=== PATIENT | female | born 1960 | race Caucasian/White ===

== ENCOUNTER → 2019-05-26 | Day surgery (SDC) | payer OTHER ==
--- NOTE | 2019-05-25 13:25 | Pre Op History & Physical ---
CHIEF COMPLAINT: Lesion in the left corner of the eye on the medial area. HISTORY OF PRESENT ILLNESS: This 58-year-old female was noted to have a lesion in the left medial corner of the upper eyelid for number of years. The lesion has been increasing in size and irritating to the patient. The patient has history of sun exposure. REVIEW OF SYSTEMS: System review showed no recent cardiovascular, respiratory, or GI problem. PAST MEDICAL HISTORY: The patient has a history of hypertension. PAST SURGICAL HISTORY: She has a previous right knee surgery, breast biopsy, tonsillectomy, and hysterectomy. ALLERGIES: SHE IS ALLERGIC TO CODEINE AND ASPIRIN. MEDICATIONS: She is on Dexilant, chlordiazepoxide. SOCIAL HISTORY: She smokes a few cigarettes per day and is a nondrinker. FAMILY HISTORY: Noncontributory. PHYSICAL EXAMINATION: VITAL SIGNS: The patient's vital signs were within normal limits. HEENT: Ear exam showed normal tympanic membrane bilaterally. Musculoskeletal exam showed the patient has a papillary lesion about 0.5 cm in the medial corner of the upper eyelid. Nasal exam showed no obvious abnormality. Oropharynx and oral cavity showed no tonsils with Mallampati level 3. NECK: Showed no lymph nodes or no thyroid palpable. CHEST: Showed good air entry bilaterally. CARDIOVASCULAR: Showed S1 and S2. No murmur noted. ASSESSMENT AND PLAN: Ms. Pisano has a lesion on the corner of the eye, which is increasing in size and irritating to the patient. Suggested treatment is excision of lesion with appropriate closure and other necessary procedure. The complication of procedure includes, but not limited to bleeding, infection, poor cosmetic result, lid lag, wound breakdown, trouble with hearing, corneal abrasion, persistent recurrence of the problem. The alternative will be continue observation excision of lesion in the office setting. The patient has elected to undergo surgical procedure. MD ASYA Daniel/RAMEZ /[id number] cc: Dr. Penelope Belcher
[~2019-05-26] MED LIST: BALANCED SALT SOLN (OPTH) 15 ML BTL IO ONE; CHLORDIAZEPOXI1 EACH PO; CHLORDIAZEPOXID10 MG PO; DEXAMETHASONE SOD PHOS INJ 4 MG/ML VIAL ONE; DEXILANT60 MG PO; FENTANYL CITRATE/PF 100MCG/2 ML INJ ONE; LIDOCAINE 1% W/EPINEPHRINE 20 ML VIAL ONE; LIDOCAINE HCL 2% LOCAL INJ 5 ML SDV VIAL INJ ONE; LOSARTAN POTAS100 MG PO; MIDAZOLAM HCL 2 MG/2 ML VIAL ONE; ONDANSETRON HCL INJ 2MG/ML 2ML 2 MG/ML VIAL ONE; PROPOFOL IV EMULSION 10 MG/ML 20 ML VIAL ONE; SEVOFLURANE INHAL SOLN 250 ML PEN BTL ONE
--- OUTSIDE RECORDS SUMMARY | 2019-05-26 06:42 | XMS REPORT | Summary of Care ---
Author Author [facility] [place] Organization [facility] [place] Address Unknown Phone Unavailable Encounter HQ Encntr_alias(FIN) [id number] Date(s): 08/03/16 - 08/03/16 [facility] [place] [address] [place] [phone] Discharge Disposition: Home or Self Care Attending Physician: Konstantin Belcher MD Vital Signs No data available for this section Problem List No data available for this section Allergies, Adverse Reactions, Alerts No data available for this section Medications No data available for this section Results No data available for this section Immunizations No data available for this section Procedures No data available for this section Social History No data available for this section Assessment and Plan No data available for this section
--- OUTSIDE RECORDS SUMMARY | 2019-05-26 06:42 | XMS REPORT | Clinical Summary ---
Author Author [facility] Address Unknown Phone Unavailable Care Team Providers Care Door Closer Mechanic Name Role Phone Belcher Konstantin Tariq PCP Allergies Comments Active Allergy Reactions Severity Noted Date Aspirin Swelling 01/17/2018 Codeine 01/17/2018 Medications End Date Status Medication Sig Dispensed Refills Start Date Active amitriptyline-chlordiazep Take 1 tablet 0 oxide (LIMBITROL) 25-10 by mouth 2 mg tablet (two) times a day. Active losartan (COZAAR) 50 MG TK 1 T PO QD 3 tablet 9 Active chlordiazePOXIDE Take 10 mg by 0 (LIBRIUM) 10 MG capsule mouth 3 (three) times a day as needed for anxiety. Active dexlansoprazole Take 60 mg by 0 (DEXILANT) 60 mg capsule mouth daily. Active Problems Not on file Encounters Care Team Description Date Type Specialty Joao Villanueva MD Epistaxis (Primary Dx) 03/29/2019 Emergency Emergency Medicine after 05/25/2018 Social History Date Tobacco Use Types Packs/Day Years Used Heavy Tobacco Smoker 1 Smokeless Tobacco: Never Used Alcohol Use Drinks/Week oz/Week Comments No Sex Assigned at Date Recorded Not on file Industry Job Start Date Occupation Not on file Not on file Not on file Travel End Travel History Travel Start No recent travel history available. 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 For more information, kalee cuba contact: Misbah Manzo [address] [place] [address]
--- OUTSIDE RECORDS SUMMARY | 2019-05-26 06:42 | XMS REPORT | Continuity of Care Document ---
Author Author [employer] Organization [employer] Address Unknown Phone Unavailable Care Team Providers Care Shook Machine Operator Name Role Phone anywayanyday Information [employer] Unavailable Unavailable Problems Problem Status Onset Date Classification Date Reported Comments Source Encounter for screening mammogram for malignant neoplasm of breast 09/23/2018 04/05/2019 [facility] Z12.31 - ENCNTR SCREEN MAMMOGRAM FOR MA Active 07/02/2016 [facility] [place] Age-related osteoporosis without current pathological fracture 04/05/2019 [facility] [place] Other specified disorders of bone density and structure, unspecified site 04/05/2019 [facility] [place] Medications No Data Provided for This Section Allergies, Adverse Reactions, Alerts No Known Medication Allergies Immunizations No Data Provided for This Section Results No Data Provided for This Section Pathology Reports No Data Provided for This Section Diagnostic Reports Report Value Date Source Breast Mammo Scrn MALACHI incl CAD MA BILATERAL DIGITAL SCREENING MAMMOGRAM WITH CAD: 09/16/2018 CLINICAL: Z12.31 Encounter For Screening Mammogram For Malignant Neoplasm Of Breast/Z12.31 Encounter For Screening Mammogram For Malignant Neoplasm Of Breast. Current study was evaluated with a Computer Aided Detection (CAD) system. COMPARISON:Comparison is made to exams dated: 08/03/2016 mammogram - [facility], 08/15/2011 mammogram - [facility], and 04/27/2010 mammogram - [facility]. TECHNIQUE: Mammographic views were obtained using digital acquisition. Current study was also evaluated with a Computer Aided Detection (CAD) system. FINDINGS: There are scattered fibroglandular densities in both breasts. There are stable bilateral asymmetries, accounting for differences in positioning and technique. There is a benign appearing mass in the left breast. There also are benign appearing calcifications in both breasts. No significant masses, calcifications, or other findings are seen in either breast. There has been no significant interval change. IMPRESSION: BENIGN RECOMMENDATION:There is no mammographic evidence of malignancy. A 1 year screening mammogram is recommended.(09/17/2019) Professional services are provided by the [facility]. Shailesh Patton M.D., jp/carey:09/17/2018 07:55:46 It Trainer(s): RT Tomer(R)(M), [facility] letter sent: BI-RADS 1/2 Mammogram BI-RADS: 2 Benign 09/16/2018 [facility] Bone Density [employer] MA BONE DENSITY ASSESSMENT: 09/16/2018 CLINICAL DATA: Post menopausal. M81.0 Age related osteoporosis. M81.0 Age- Related Osteoporosis Without Current Pathological Fracture/M81.0 Age-Related Osteoporosis Without Current Pathological Fracture RISK FACTORS: race. COMPARISON: 08/03/2016 Left hip using a Hologic unit from [facility] with reported medium fracture risk, BMD of 0.734g/cm2, T-score of -1.70, and Z-score of - 1.00. 08/03/2016 Right hip using a Hologic unit from [facility] with reported medium fracture risk, BMD of 0.758g/cm2, T-score of -1.50, and Z-score of - 0.80. 08/03/2016 AP L1-L4 region of spine using a Hologic unit from [facility] with reported medium fracture risk, BMD of 0.849g/cm2, T-score of - 1.80, and Z-score of -0.70. FINDINGS: Bone density evaluation was performed 09/16/2018 on the right femur neck using a Hologic unit. The BMD average for the exam is 0.627 g/cm2. The T-score is -2.00 and the Z-score is -0.80. This matches the World Health Organization's criteria for osteopenia and places the patient at a medium risk for fracture. An additional bone density evaluation was performed 09/16/2018 on the left femur neck using a Hologic unit. The BMD average for the exam is 0.632 g/cm2. The T- score is -2.00 and the Z-score is -0.80. This matches the World Health Organization's criteria for osteopenia and places the patient at a medium risk for fracture. An additional bone density evaluation was performed 09/16/2018 on the right hip using a Hologic unit. The BMD average for the exam is 0.754 g/cm2. The T-score is -1.50 and the Z-score is -0.70. Since the previous similar exam of 08/03/2016, there has been a -0.004 or -0.5% change in the BMD value which represents no significant interval change in bone density. This matches the World Health Organization's criteria for osteopenia and places the patient at a medium risk for fracture. An additional bone density evaluation was performed 09/16/2018 on the left hip using a Hologic unit. The BMD average for the exam is 0.736 g/cm2. The T-score is -1.70 and the Z-score is -0.90. Since the previous similar exam of 08/03/2016, there has been a +0.002 or +0.3% change in the BMD value which represents no significant interval change in bone density. This matches the World Health Organization's criteria for osteopenia and places the patient at a medium risk for fracture. An additional bone density evaluation was performed 09/16/2018 on the AP L1-L4 region of spine using a Hologic unit. The BMD average for the exam is 0.867 g/cm2. The T-score is -1.60 and the Z-score is -0.40. Since the previous similar exam of 08/03/2016, there has been a +0.018 or +2.1% change in the BMD value which represents no significant interval change in bone density. This matches the World Health Organization's criteria for osteopenia and places the patient at a medium risk for fracture. FRAX 10 year probability of major osteoporotic fracture is 8.6% and hip fracture is 1%. IMPRESSION: OSTEOPENIA Patient is at medium risk for fracture. This exam was interpreted at [id number] at [facility]. Jean Pierre Bullard M.D., cm/carey:09/16/2018 15:27:52 It Trainer(s): Cynthia HERNANDEZ(R)(M), [facility] 09/16/2018 [facility] Pelvis Transvaginal US EXAM: Pelvis Transvaginal US HISTORY: R10.2 Pelvic and perineal pain COMPARISON: 01/05/2009 Technique: Transabdominal and Transvaginal Vanegas scale and color doppler with limited spectral doppler imaging of the uterus and ovaries. Findings: Neither ovary is visualized. The uterus is surgically absent. No adnexal mass is seen. There is no free fluid. The bladder is distended and grossly unremarkable. IMPRESSION: No pelvic mass is seen. Neither ovary is visualized. 08/14/2016 [facility] Bone Density D[employer] MA - Bone Density D[employer] MA BONE DENSITY EVALUATION: 08/03/2016 CLINICAL DATA: Post menopausal and clinical risk for osteoporosis. RISK FACTORS: race, maternal history of osteoporosis and cigarette smoking. FINDINGS: Bone density evaluation was performed 08/03/2016 on the AP L1-L4 region of spine using a Hologic unit. The BMD average for the exam is 0.849 g/cm2. The T-score is -1.80 and the Z-score is -0.70. This matches the World Health Organization's criteria for osteopenia and places the patient at a medium risk for fracture. An additional bone density evaluation was performed 08/03/2016 on the right femur neck using a Hologic unit. The BMD average for the exam is 0.645 g/cm2. The T-score is -1.80 and the Z-score is -0.70. This matches the World Health Organization's criteria for osteopenia and places the patient at a medium risk for fracture. An additional bone density evaluation was performed 08/03/2016 on the right hip using a Hologic unit. The BMD average for the exam is 0.758 g/cm2. The T-score is -1.50 and the Z-score is -0.80. This matches the World Health Organization's criteria for osteopenia and places the patient at a medium risk for fracture. An additional bone density evaluation was performed 08/03/2016 on the left femur neck using a Hologic unit. The BMD average for the exam is 0.593 g/cm2. The T- score is -2.30 and the Z-score is -1.20. This matches the World Health Organization's criteria for osteopenia and places the patient at a medium risk for fracture. An additional bone density evaluation was performed 08/03/2016 on the left hip using a Hologic unit. The BMD average for the exam is 0.734 g/cm2. The T-score is -1.70 and the Z-score is -1.00. This matches the World Health Organization's criteria for osteopenia and places the patient at a medium risk for fracture. IMPRESSION: OSTEOPENIA Patient is at medium risk for fracture. This exam was dictated and interpreted by [id number] for [facility]. Lizette Moody M.D. ms/penrad:08/08/2016 09:38:24 It Trainer: Enid HERNANDEZ(R)(M), [facility] 08/03/2016 [facility] Chest 2 views DX EXAM: 2 view(s) of the chest. INDICATION: Nicotine dependence. COMPARISON: Chest x-ray: None. FINDINGS: Support apparatus: None. Cardiac silhouette: Unremarkable. Kaleigh: Unremarkable. Lobar consolidation: Negative. Pleural effusion: Negative. Pneumothorax: Negative. Other: Negative. Bones: Unremarkable. Other: Bilateral metallic nipple markers. IMPRESSION: 1. No acute cardiopulmonary process. 08/03/2016 [facility] Digital Mammo Screening Malachi MA - DIGITAL MAMMO SCREENING MALACHI MA BILATERAL DIGITAL SCREENING MAMMOGRAM WITH CAD: 08/03/2016 CLINICAL: Z12.31 Encounter For Screening Mammogram For Malignant Neoplasm Of Breast. Current study was evaluated with a Computer Aided Detection (CAD) system. Comparison is made to exams dated: 08/15/2011 mammogram - [facility], 04/27/2010 mammogram and 03/22/2010 mammogram - [facility]. There are scattered fibroglandular densities in both breasts. There are benign appearing calcifications in both breasts. There also are benign appearing densities in the left breast. Additionally there are post operative findings in both breasts. No significant masses, calcifications, or other findings are seen in either breast. IMPRESSION: BENIGN There is no mammographic evidence of malignancy. A 1 year screening mammogram is recommended. At the time of this study, the patient reported a history of breast pain; if this pain is focal and constant, ultrasound may be considered for further evaluation as clinically directed. Consider genetic counseling in this patient with a family history of breast cancer in maternal and paternal aunts, as well as a family history of ovarian cancer in an aunt. Alina Garcia M.D. rn/:08/06/2016 09:53:11 It Trainer: Cynthia Cruz RT(R)(M), [facility] This exam was dictated and interpreted by [id number] for BAUDILIO Gutierrez. letter sent: Bilateral Benign Mammogram BI-RADS: 2 Benign 08/03/2016 [facility] [place] Consultation Notes No Data Provided for This Section Discharge Summaries No Data Provided for This Section History and Physicals No Data Provided for This Section Vital Signs No Data Provided for This Section Encounters Location Location Details Encounter Type Encounter Number Reason For Visit Attending Provider ADM Date DC Date Status Source [facility] [place] Out[facility] [id number] Konstantin Belcher 08/03/2016 08/04/2016 [facility] [place] [facility] [place] [facility] [id number] Konstantin Belcher 08/14/2016 08/15/2016 [facility] [place] [facility] [place] Out[facility] [id number] Konstantin Belcher 09/16/2018 09/17/2018 [facility] [place] Procedures No Data Provided for This Section Assessment and Plan No Data Provided for This Section Plan of Care No Data Provided for This Section Social History Social History Date Source No data available for this section 09/17/2018 [facility] [place] Family History No Data Provided for This Section Advance Directives No Data Provided for This Section Functional Status No Data Provided for This Section
--- OUTSIDE RECORDS SUMMARY | 2019-05-26 06:42 | XMS REPORT | Summary of Care ---
Author Author [facility] [place] Organization [facility] [place] Address Unknown Phone Unavailable Encounter HQ Lito_morena(FIN) [id number] Date(s): 09/16/18 - 09/16/18 [facility] [place] [address] [place] [phone] Encounter Diagnosis Encounter for screening mammogram for malignant neoplasm of breast (Final) - 09/22/18 Age-related osteoporosis without current pathological fracture (Final) - Other specified disorders of bone density and structure, unspecified site (Final) - Discharge Disposition: Home or Self Care Attending Physician: Konstantin Belcher MD Referring Physician: Konstantin Belcher MD Vital Signs No [...]
--- OUTSIDE RECORDS SUMMARY | 2019-05-26 06:42 | XMS REPORT | Summary of Care ---
Author Author [facility] [place] Organization [facility] [place] Address Unknown Phone Unavailable Encounter HQ Encntr_alias(FIN) [id number] Date(s): 08/14/16 - 08/14/16 [facility] [place] [address] [place] [phone] Discharge Disposition: Home or Self Care Attending [...]
--- NOTE | 2019-05-26 07:20 | NUR ---
SPIRITUAL CARE - Pre-Surgery Assessment: Pt in bed. Pt's at bedside. Pt reported supportive attention from family and friends. Intervention: I provided pastoral presence, hospitality, sympathetic listening, and prayer. I acquainted pt with availability of jet mechanic while hospitalized. Outcome: Pt expressed appreciation for visit. No need for follow up indicated at this time. SIERRA COREY Performance Analyst Spiritual Care Department O: [phone] Pager: [phone] ([phone] number calling from)
[2019-05-26 11:15] VITALS: BP 131/84
--- NOTE | 2019-05-28 10:40 | Operative Report ---
DATE OF PROCEDURE: 05/26/2019 SURGEON: Sebastian Morton MD CHIEF COMPLAINT: Lesion on left medial eyelid and lateral side of the nose on the left side. POSTOPERATIVE DIAGNOSIS: Lesion on left medial eyelid and lateral side of the nose on the left side. OPERATIVE PROCEDURE: Excision of left upper eyelid and lateral nose lesion 2 x 1 cm with skin graft closure. ANESTHESIA: Anesthesiology group. INDICATIONS: This 58-year-old female was noted to have a lesion in the lateral side of the nose over the past year. The lesion has been increasing in size. The patient has been treated with ointment with no improvement. It was that decided excision of lesion with appropriate closure and other necessary procedure will be beneficial for her. DESCRIPTION OF PROCEDURE: The patient was taken to the operating room, put under general anesthesia, LMA airway created. The lesion was excised. The location of lesion was at the lateral upper nose. Size of the defect was about 2 x 1 cm. This was sent for frozen section. At the time of procedure, the frozen section was not available because the pathologist was not available. The specimen was subsequently sent to permanent section. Because of the lack of frozen section, a margin of about 0.5 cm around the lesion was taken. Closure of the area was undertaken. Closure of this area was difficult because of the lack of excess tissue around that area. It was decided that a skin graft will be a more beneficial closure technique, especially the fact that no definitive confirmation of the margins being clear. Skin graft was taken from the upper eyelid on the left side. The harvesting of the skin graft was undertaken. The skin graft was taken from the upper lid blepharoplasty. This was done with marking of the upper lid, the inferior portion of the incision was about 1 cm from the edge of the lashes and the excess skin of the upper eyelid was determined to make sure that no lid lag or trouble closure of the lid would be undertaken. This was taken off with skin only. The harvested skin was put on the side. The incision of the upper lid was closed with 6-0 Prolene suture in an interrupted fashion. The skin graft that was harvested was put on the excision defect and trimmed to size. This was also sutured in place as a full-thickness skin graft to the defect and sutured in place using 6-0 Prolene suture in the interrupted fashion. Hemostasis in both the donor and the excision site was controlled using the bipolar cautery. The patient tolerated the above procedure well with minimal blood loss. She was given 20 mg of Decadron intraoperatively. The patient was able to be transferred to recovery room in stable condition. MD ASYA Daniel/RAMEZ /[id number]
== END | disposition home or self-care (01) ==
LOC: OR 06:38
PROVIDERS: ATTEND Otolaryngology Otolaryngology/Facial Plastic Surgery
DX: C44.1191 Basal cell carcinoma of skin of left upper eyelid, including canthus (principal); J34.89 Other specified disorders of nose and nasal sinuses; J45.909 Unspecified asthma, uncomplicated; I10 Essential (primary) hypertension; K21.9 Gastro-esophageal reflux disease without esophagitis; F17.210 Nicotine dependence, cigarettes, uncomplicated; Z88.6 Allergy status to analgesic agent
CPT/HCPCS: 15260; 88305; 93005; J1100; J2001; J2250; J2405; J2704; J3010

== ENCOUNTER → 2019-07-21 | Day surgery (SDC) | payer OTHER ==
--- NOTE | 2019-07-20 13:17 | Pre Op History & Physical ---
DATE OF SURGERY: 07/21/2019 CHIEF COMPLAINT: Basal cell carcinoma of the left lateral nose. HISTORY OF PRESENT ILLNESS: This 58-year-old female had excision of lesion of the left lateral nose in May of 2019. The patient's pathology returned as basal cell carcinoma with margin not clear. The patient has a skin graft at that time. Right after the excision, the patient was given the option of re-excision of the lesion, but the patient declined. On her last visit in mid June in the office, there was a questionable recurrence of the lesion. It was decided re-excision will be beneficial with frozen section control. REVIEW OF SYSTEMS: System review showed no recent cardiovascular, respiratory, or GI problem. PAST MEDICAL HISTORY: The patient has a history of hypertension. PAST SURGICAL HISTORY: The patient has previous surgery of the right knee, hysterectomy, breast biopsy, and tonsillectomy. ALLERGIES: ALLERGIC TO CODEINE AND ASPIRIN. MEDICATIONS: She is on: 1. Dexilant. 2. Chlordiazepoxide. SOCIAL HISTORY: She smokes about half a pack a day. She is a nondrinker. FAMILY HISTORY: Noncontributory. PHYSICAL EXAMINATION: VITAL SIGNS: On examination, the patient's vital signs were within normal limits. HEENT: Ear exam showed normal tympanic membranes bilaterally. Nasal exam showed no obvious abnormality. MUSCULOSKELETAL: Showed a lateral nose superiorly with a 1.5 x 0.5 cm lesion with the proximal margin with questionable recurrence. Oropharynx and oral cavity showed no tonsils noted. Mallampati level 3. NECK: Showed no lymph node or thyroid palpable. CHEST: Showed good air entry bilaterally. CARDIOVASCULAR: Showed S1 and S2. No murmur noted. ASSESSMENT AND PLAN: Ms. Pisano has basal cell carcinoma with skin graft repair. Skin graft has taken, there is a questionable recurrence of lesion in the proximal margin of the excision area suggest treatment of excision of lesion with frozen section control and reapplication of skin graft and other necessary procedure. The complication of procedure includes, but not limited to bleeding, infection, wound breakdown, poor cosmetic result, ectropion, entropion, trouble closing the eye, facial nerve injury, poor cosmetic result, persistent recurrence of the problem. Alternatives will be continued observation, excision of the lesion in the office setting. The patient and her have elected to undergo surgical procedure. MD ASYA Daniel/RAMEZ /[id number]
[~2019-07-21] MED LIST changes: +IBUPROFEN 800MG/ 250ML 250 ML IV ONE; +NEOSTIGMINE 1 MG/ML 10ML VIAL ONE; +ROCURONIUM BROMIDE 10 MG/ML 5ML VIAL ONE
--- OUTSIDE RECORDS SUMMARY | 2019-07-21 08:27 | XMS REPORT | Continuity of Care Document ---
Author Author [employer] Organization [employer] Address Unknown Phone Unavailable Care Team Providers Care Associate Field Service Engineer Name Role Phone [employer] Unavailable Unavailable Problems Problem Status Onset Date Classification Date Reported Comments Source Encounter for screening mammogram for malignant neoplasm of breast 09/23/2018 04/05/2019 [facility] Z12.31 - ENCNTR SCREEN MAMMOGRAM FOR MA Active 07/02/2016 [facility] Age-related osteoporosis without current pathological fracture 04/05/2019 [facility] Other specified disorders of bone density and structure, unspecified site 04/05/2019 [facility] Medications No Data Provided for This Section [...] made to exams dated: 08/03/2016 mammogram - [facility], 08/15/2011 mammogram - [facility], and 04/27/2010 mammogram - [facility]. TECHNIQUE: Mammographic views were obtained using digital [...] Diagnostic Imaging. Shailesh Patton M.D., jp/carey:09/17/2018 07:55:46 Senior Sharepoint Architect(s): RT Tomer(R)(M), [facility] letter sent: BI-RADS 1/2 Mammogram BI-RADS: 2 Benign 09/16/2018 [facility] Bone Density DXA [employer] MA BONE DENSITY ASSESSMENT: 09/16/2018 CLINICAL DATA: Post menopausal. M81.0 Age related osteoporosis. M81.0 Age- Related Osteoporosis Without Current Pathological Fracture/M81.0 Age-Related Osteoporosis Without Current Pathological Fracture RISK FACTORS: race. COMPARISON: 08/03/2016 Left hip using a Hologic unit from [facility] with reported medium fracture risk, BMD of 0.734g/cm2, T-score of -1.70, and Z-score of - 1.00. 08/03/2016 Right hip using a Hologic unit from [facility] with reported medium fracture risk, BMD of 0.758g/cm2, T-score of -1.50, and Z-score of - 0.80. 08/03/2016 AP L1-L4 region of spine using a Hologic unit from [facility] with reported medium fracture risk, BMD of [...] for fracture. This exam was interpreted at [id number] at [facility]. Jean Pierre Bullard M.D., cm/carey:09/16/2018 15:27:52 Senior Sharepoint Architect(s): Cynthia HERNANDEZ(R)(M), [facility] 09/16/2018 [facility] Pelvis Transvaginal US EXAM: Pelvis Transvaginal US [...] This exam was dictated and interpreted by [id number] for [facility]. Lizette Moody M.D. ms/penrad:08/08/2016 09:38:24 Senior Sharepoint Architect: Enid HERNANDEZ(R)(M), [facility] 08/03/2016 [facility] Chest 2 views DX EXAM: 2 view(s) of the chest. INDICATION: Nicotine dependence. COMPARISON: Chest x-ray: None. FINDINGS: Support apparatus: None. Cardiac silhouette: Unremarkable. Kaleigh: Unremarkable. Lobar consolidation: Negative. Pleural effusion: Negative. Pneumothorax: Negative. Other: Negative. Bones: Unremarkable. Other: Bilateral metallic nipple markers. IMPRESSION: 1. No acute cardiopulmonary process. 08/03/2016 [facility] Digital Mammo Screening Malachi MA - DIGITAL MAMMO SCREENING MALACHI MA BILATERAL DIGITAL SCREENING MAMMOGRAM WITH CAD: 08/03/2016 CLINICAL: Z12.31 Encounter For Screening Mammogram For Malignant Neoplasm Of Breast. Current study was evaluated with a Computer Aided Detection (CAD) system. Comparison is made to exams dated: 08/15/2011 mammogram - [facility], 04/27/2010 mammogram and 03/22/2010 mammogram - [facility]. There are scattered fibroglandular densities in both [...] an aunt. Alina Garcia M.D. rn/:08/06/2016 09:53:11 Senior Sharepoint Architect: Cynthia Cruz RT(R)(M), [facility] This exam was dictated and interpreted by [id number] for BAUDILIO Gutierrez. letter sent: Bilateral Benign Mammogram BI-RADS: 2 Benign 08/03/2016 [facility] Consultation Notes No Data Provided for This Section Discharge Summaries No Data Provided for This Section History and Physicals No Data Provided for This Section Vital Signs No Data Provided for This Section Encounters Location Location Details Encounter Type Encounter Number Reason For Visit Attending Provider ADM Date DC Date Status Source [facility] [id number] Konstantin Belcher 08/03/2016 08/04/2016 [facility] [id number] Konstantin Belcher 08/14/2016 08/15/2016 [facility] [id number] Konstantin Belcher 09/16/2018 09/17/2018 [facility] Procedures No Data Provided for This Section Assessment and Plan No Data Provided for This Section Plan of Care No Data Provided for This Section Social History Social History Date Source No data available for this section 09/17/2018 [facility] Family History No Data Provided for This Section Advance Directives No Data Provided for This Section Functional Status No Data Provided for This Section
--- OUTSIDE RECORDS SUMMARY | 2019-07-21 08:27 | XMS REPORT | Clinical Summary ---
Author Author [facility] Address Unknown Phone Unavailable Care Team Providers Care Campaign Consultant Name Role Phone Ye Konstantin Tariq PCP Allergies Comments Active Allergy [...] (Primary Dx) 03/29/2019 Emergency Emergency Medicine after 07/20/2018 Social History Date Tobacco Use Types Packs/Day Years Used Heavy Tobacco Smoker 1 Smokeless Tobacco: Never Used Drinks/Week oz/Week Comments Alcohol Use No Sex Assigned at Date Recorded Not on file Industry Job Start Date Occupation Not on file Not on file Not on file Travel End Travel History Travel Start No recent travel history available. Last Filed Vital Signs Reading Time Taken Comments Vital Sign 139/87 03/29/2019 6:28 PM CDT Blood Pressure 78 03/29/2019 6:28 PM CDT Pulse 37 C (98.6 F) 03/29/2019 6:28 PM CDT Temperature 18 03/29/2019 6:28 PM CDT Respiratory Rate 99% 03/29/2019 6:28 PM CDT Oxygen Saturation - - Inhaled Oxygen Concentration 63.5 kg (140 lb) 03/29/2019 5:13 PM CDT Weight - - Height 25.61 01/17/2018 10:08 PM PAPER [employer]ERTER Body Mass Index Plan of Treatment Health Maintenance Due Date Last Done Comments CERVICAL CANCER SCREENING 1981 BREAST CANCER SCREENING 2010 COLONOSCOPY SCREENING 2010 SHINGLES VACCINES (#1) 2010 INFLUENZA VACCINE 06/18/2019 Results Not on fileafter 07/20/2018 Insurance Type Payer Benefit Subscriber ID Effective Phone Address Plan / Dates Group HMO AETNA AETNA xxxxxxxxxx 2011-P HMO,POS,EP resent O, MC/EC Advance Directives For more information, please contact: [phone] Patient Server Programmer Explanation Type Date Recorded Advance Directives, 01/17/2018 10:58 PM Living Will and Medical Power of [employer] Advance Directives, 03/29/2019 5:52 PM Living Will and Medical Power of [employer]
[2019-07-21 13:50] VITALS: BP 123/82
--- NOTE | 2019-07-21 18:49 | Operative Report ---
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 POSTOPERATIVE DIAGNOSES: Basal cell carcinoma of left lateral nose and lesion in the right auricle. OPERATIVE PROCEDURE: Re-excision of basal cell carcinoma of the left lateral nose and excision of lesion in the left superior portion of the auricle, reexcision of the left lateral nose was 2 x 1 cm with skin graft closure, the superior auricle on the left side was 0.5 x 1 cm with appropriate closure. ANESTHESIA: Dr. Hernandez. OPERATIVE INDICATIONS: This 58-year-old female had a basal cell carcinoma removed from the resected on the lateral portion of the left superior nose close to the medial canthus of the eye in May 2019. A permanent section at that time returned as margins were not clear. The patient has skin graft reconstruction at that point. The patient was given the option to immediately go back and re-excise the area. The patient has declined. However, over the past few weeks, a small nodular lesion was noted in the lateral portion of the skin graft. The patient also was noted to have a lesion in the left auricle superiorly about 0.5 cm, which has been irritating to the patient. It was decided that reexcision of the basal cell carcinoma area on the left lateral nose with appropriate closure, likely skin graft and a frozen section control and excision of left superior auricle with appropriate closure will be indicated. DESCRIPTION OF PROCEDURE: The patient was taken to operating room, put under general anesthesia, and LMA airway created. Both the nasal area and the left auricle area were injected with 1% Xylocaine with 1:100,000 epinephrine for hemostasis. The both areas were prepped and draped in a sterile fashion. The left lateral nose was approached first. The previous skin graft area was excised and sent for frozen section. The defect was about 2 x 1 cm. The frozen section returned as all margins were clear. Closure of this area was undertaken. The area was irrigated with copious amount of normal saline and hemostasis was achieved using the bipolar cautery. A skin graft was harvested from the left postauricular area with the template as the sizing for the defect. The skin graft was harvested from the left postauricular area and was sutured in place after thinning off the skin graft from the subcutaneous fat to the defect. This was done using 5-0 Prolene suture in the interrupted fashion. The medial canthus of the eye was not disturbed. The closure of the donor defect was undertaken. Any hemostasis in the donor site and the postauricular area on the left side was controlled using the bipolar cautery. The area was closed using 4-0 Prolene suture in the interrupted fashion. Excision of the left superior auricular area was undertaken. The area was excised. The size of the defect was about 0.5 x 1 cm. This also was sent for frozen section. The frozen section returned as likely a verrucous, but no malignancy. Closure of the area was undertaken. Hemostasis was achieved using the bipolar cautery. The posterior based flap was elevated on the posterior portion of the auricle in a subcutaneous plane. This was advanced and close on to the defect using 5-0 Prolene suture in the interrupted fashion. The patient tolerated the above procedure well with minimal blood loss. She was able to be transferred to recovery room in stable condition. MD SYLVIA DanielH/MODL /[id number]
== END | disposition home or self-care (01) ==
LOC: OR 08:24
PROVIDERS: ATTEND Otolaryngology Otolaryngology/Facial Plastic Surgery
DX: C44.311 Basal cell carcinoma of skin of nose (principal); B07.8 Other viral warts; L90.5 Scar conditions and fibrosis of skin; I10 Essential (primary) hypertension; J45.909 Unspecified asthma, uncomplicated; F17.210 Nicotine dependence, cigarettes, uncomplicated; Z88.6 Allergy status to analgesic agent
CPT/HCPCS: 14060; 15260; 88305; 88331; 88332; J1100; J2001; J2250; J2405; J2704; J2710; J3010